=== PATIENT | male | born 1940 | race Caucasian/White ===

== ENCOUNTER → 2023-11-26 | Outpatient (CLI) | payer MEDICARE, BC ==
[~2023-11-26] MED LIST: iohexol 300mg/ml 100ml inj. ONE
== END | disposition home or self-care (01) ==
LOC: RAD 14:49
PROVIDERS: ATTEND Nurse Practitioner Family
DX: C16.9 Malignant neoplasm of stomach, unspecified (principal); C78.7 Secondary malignant neoplasm of liver and intrahepatic bile duct; K76.9 Liver disease, unspecified
CPT/HCPCS: 74170; J3490; Q9967